=== PATIENT | female | born 1940 | race Caucasian/White ===

== ENCOUNTER 2021-07-21 15:09 | Emergency (ER) | payer OTHER, BC ==
[~2021-07-21] VITALS: Ht 167.6 cm; Wt 136.1 kg
[~2021-07-21 15:09] MED LIST: FUROSEMIDE 40 M40 M1 PO; GLYCOLAX17 GM PO; KLOR-CON 1010 MEQ PO; MEGESTROL ACETA40 MG PO; MS CONTIN15 MG PO; NEXIUM40 MG PO; PERCOCET; SYMBICORT160 MCG/4. INH
== END 2021-07-21 15:25 ==
LOC: ER 15:09
DX: I46.9 Cardiac arrest, cause unspecified (principal); J44.9 Chronic obstructive pulmonary disease, unspecified; M81.0 Age-related osteoporosis without current pathological fracture; M19.90 Unspecified osteoarthritis, unspecified site; Z98.890 Other specified postprocedural states; Z85.43 Personal history of malignant neoplasm of ovary; Z79.891 Long term (current) use of opiate analgesic; Z79.1 Long term (current) use of non-steroidal anti-inflammatories (NSAID); Z79.899 Other long term (current) drug therapy; Z88.0 Allergy status to penicillin; Z91.018 Allergy to other foods